=== PATIENT | female | born 1945 | race Two or more races ===

== ENCOUNTER 2025-03-06 18:00 | Emergency (ER) | payer OTHER ==
[~2025-03-06] VITALS: Ht 149.9 cm; Wt 59.0 kg
[2025-03-06 18:17] VITALS: RESP 18; TEMP 98.2
[2025-03-06 18:28] LABS: PLATELET COUNT (AUTO) 222 K/uL (150-450); RED BLOOD CELL COUNT(AUTO) 3.20 MIL/uL (4.00-5.20); RED CELL DISTRIBUTION WIDTH 19.1 % (11.5-14.5); WHITE BLOOD COUNT (AUTO) 9.3 K/uL (4.5-11.0)
[2025-03-06 18:36] LABS: CALCIUM, TOTAL 8.9 mg/dL (8.8-10.5); CREATININE 1.09 mg/dL (0.60-1.30); GLOMERULAR FILTR. RATE CALC 49.0 mL/min (>60); GLUCOSE,RANDOM 99.0 mg/dL (70-110); SODIUM SERUM 141.0 mmol/L (136-145); UREA NITROGEN, BLOOD 36.0 mg/dL (7-18)
[2025-03-06 18:41] LABS: COVID AG,FIA SOURCE NASAL SWAB
[2025-03-06 19:08] LABS: SARS-COV2 (COVID) ANTIGEN,FIA Negative (Negative)
[2025-03-06 21:31] VITALS: BP 117/72; PULSE 58; O2SAT 98
== END 2025-03-06 21:34 ==
LOC: EMS 18:03
DX: R45.1 Restlessness and agitation (principal); F32.A Depression, unspecified; E03.9 Hypothyroidism, unspecified; E78.00 Pure hypercholesterolemia, unspecified; I10 Essential (primary) hypertension; Z86.73 Personal history of transient ischemic attack (TIA), and cerebral infarction without residual deficits; Z88.0 Allergy status to penicillin; Z91.013 Allergy to seafood; Z20.822 Contact with and (suspected) exposure to COVID-19
CPT/HCPCS: 99283; 87426; 80048; 85025; 36415; G0480